=== PATIENT | female | born 1960 | race Caucasian/White ===

== ENCOUNTER 2017-07-19 13:52 | Emergency (ER) | payer BC ==
[~2017-07-19] VITALS: Ht 157.5 cm; Wt 51.4 kg
[~2017-07-19 13:52] MED LIST: PERC5TAB12 PO; ULTR50TA PO; ZOFR8TAB PO
[2017-07-19 13:59] VITALS: BP 120/56; PULSE 116; RESP 18; TEMP 99.7; O2SAT 99
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
[2017-07-19] MEDS ORDERED: SODIUM CHLOR 0.9% 1000 ML INJ 1,000 ML IV ONE (15:00)
[2017-07-19] MEDS ORDERED: metroNIDAZOLE 500 MG INJ 100 ML IV ONE (15:00)
[2017-07-19] MEDS ORDERED: LEVOFLOXACIN 500 MG PREMIX INJ 100 ML IV ONE (15:00)
[2017-07-19] MEDS ORDERED: MORPHINE SULFATE 4 MG/ML INJ IV PUSH ONE (15:15)
[2017-07-19] MEDS ORDERED: ONDANSETRON HCL 4 MG/2 ML VIAL IV PUSH ONE (15:15)
[2017-07-19 15:20] LABS: AUTOMATED NEUTROPHIL # 8.7 TH/MM3 (1.8-7.7); BASOPHIL # 0.4 TH/MM3 (0-0.2); BASOPHIL % 3.5 % (0.0-2.0); EOSINOPHIL # 0.1 TH/MM3 (0-0.4); EOSINOPHIL % 0.5 % (0.0-4.0); HEMATOCRIT 40.9 % (35.0-46.0); HEMOGLOBIN 13.5 GM/DL (11.6-15.3); LYMPH % 15.1 % (9.0-44.0); LYMPHOCYTE # 1.8 TH/MM3 (1.0-4.8); MEAN CORPUSCULAR HEMOGLOBIN 27.1 PG (27.0-34.0); MEAN CORPUSCULAR HGB CONC 33.1 % (32.0-36.0); MEAN PLATELET VOLUME 9.5 FL (7.0-11.0); MONO % 6.3 % (0.0-8.0); MONOCYTE # 0.7 TH/MM3 (0-0.9); NEUT % 74.6 % (16.0-70.0); PLATELET COUNT 256 TH/MM3 (150-450); RED BLOOD COUNT 4.99 MIL/MM3 (4.00-5.30); RED CELL DISTRIBUTION WIDTH 12.7 % (11.6-17.2); WHITE BLOOD COUNT 11.7 TH/MM3 (4.0-11.0)
[2017-07-19 15:41] LABS: CHLORIDE 104 MEQ/L (98-107); SODIUM (NA) 136 MEQ/L (136-145)
[2017-07-19 15:44] LABS: CALCIUM 8.8 MG/DL (8.5-10.1)
[2017-07-19 15:45] LABS: ALBUMIN 3.6 GM/DL (3.4-5.0); BICARBONATE 24.7 MEQ/L (21.0-32.0); BLOOD UREA NITROGEN 12 MG/DL (7-18); GLUCOSE,RANDOM 91 MG/DL (74-106)
[2017-07-19 15:48] LABS: ALT (GPT) 15 U/L (10-53); AST (GOT) 9 U/L (15-37)
[2017-07-19 15:49] LABS: CREATININE 0.64 MG/DL (0.50-1.00); GLOMERULAR FILTRATION RATE 96 ML/MIN (>89)
[2017-07-19 15:50] LABS: TOTAL BILIRUBIN ADULT 0.7 MG/DL (0.2-1.0)
[2017-07-19 15:51] LABS: ALKALINE PHOSPHATASE 77 U/L (45-117)
[2017-07-19 15:51] LABS: BILIRUBIN, URINE NEG (NEG); BLOOD, URINE MOD (NEG); GLUCOSE,URINE NEG (NEG); KETONE, URINE 15 mg/dL (NEG); NITRITE,URINE NEG (NEG); URINE LEUKOCYTE ESTERASE NEG (NEG)
[2017-07-19] MEDS ORDERED: TRAM50 PO (15:57)
[2017-07-19] MEDS ORDERED: ROSU20 PO (15:57)
[2017-07-19] MEDS ORDERED: HYDR-2376 PO (16:10)
[2017-07-19] MEDS ORDERED: METR-1 PO (16:10)
[2017-07-19] MEDS ORDERED: LEVA500T33 PO (16:10)
[2017-07-19 16:11] LABS: SQUAMOUS EPITHELIAL CELL URINE 0-3 /hpf (0-5); URINE COLOR YELLOW (YELLW/STRAW); WBC, URINE 0-2 /hpf (0-5)
[2017-07-19 16:50] VITALS: BP 98/65; PULSE 98; RESP 16; O2SAT 98
[2017-07-19 18:05] VITALS: BP_SYST 112; BP_SYST 119; BP_DIAS 68; BP_DIAS 69; PULSE 94; RESP 16; O2SAT 97
== END 2017-07-19 18:15 | disposition home or self-care (01) ==
LOC: PHED 13:52
DX: K57.92 Diverticulitis of intestine, part unspecified, without perforation or abscess without bleeding (principal); R11.10 Vomiting, unspecified
CPT/HCPCS: 80053; 81001; 85025; 87040; 96365; 96367; 96375; 99284; J1956; J2270; J2405; J7030